=== PATIENT | female | born 1960 | race Caucasian/White ===

== ENCOUNTER 2016-11-15 07:45 | Outpatient (RCR) | payer OTHER ==
[~2016-11-15 07:45] MED LIST: ADRENACLICK IM; LEVOXYL0.088 MG PO; NORCO 325 MG-51 TAB PO; OSTEO-BI-FLEX 21 TAB PO; PREDNISONE20 MG PO; VOLTAREN 75 DR75 MG PO
== END 2016-11-29 07:17 | disposition still patient (30) ==
LOC: WSPT 07:45
DX: Z47.89 Encounter for other orthopedic aftercare (principal); M25.811 Other specified joint disorders, right shoulder

== ENCOUNTER → 2017-02-05 | Outpatient (CLI) | payer BC | LOC: MC.RAD 07:00 | DX: Z12.31 Encounter for screening mammogram for malignant neoplasm of breast (principal); Z80.3 Family history of malignant neoplasm of breast ==

== ENCOUNTER → 2018-03-19 | Outpatient (CLI) | payer BC | LOC: MC.RAD 08:23 | DX: Z12.31 Encounter for screening mammogram for malignant neoplasm of breast (principal) ==

== ENCOUNTER → 2019-04-22 | Outpatient (CLI) | payer BC | LOC: MC.RAD 07:49 | DX: Z12.31 Encounter for screening mammogram for malignant neoplasm of breast (principal) ==

== ENCOUNTER → 2020-05-13 | Outpatient (CLI) | payer BC | LOC: MC.RAD 07:15 | DX: Z12.31 Encounter for screening mammogram for malignant neoplasm of breast (principal) ==

== ENCOUNTER → 2021-05-16 | Outpatient (CLI) | payer BC | LOC: MC.RAD 07:40 | DX: Z12.31 Encounter for screening mammogram for malignant neoplasm of breast (principal) ==

== ENCOUNTER → 2022-06-20 | Outpatient (CLI) | payer BC | LOC: MC.RAD 09:35 | DX: Z12.31 Encounter for screening mammogram for malignant neoplasm of breast (principal) ==